=== PATIENT | male | born 1990 ===

== ENCOUNTER 2016-10-20 20:42 | Emergency (ER) | payer OTHER ==
[~2016-10-20] VITALS: Ht 167.6 cm; Wt 70.8 kg
[2016-10-20 20:44] VITALS: TEMP 38.5; Ht 167.6 cm; Wt 70.8 kg
[2016-10-20] MEDS ORDERED: ACYC1CAP8 PO (20:59)
[2016-10-20] MEDS ORDERED: ACET325T96 PO (21:00)
[2016-10-20] MEDS ORDERED: LIDO2SOL19 PO (21:02)
[2016-10-20] MEDS ORDERED: ACETAMINOPHEN 500 MG TAB PO STA (22:08)
[2016-10-20] MEDS ORDERED: ONDANSETRON 4MG OD TAB PO ONE (22:15)
[2016-10-20] MEDS ORDERED: ONDANSETRON HOME PACK 4MG OD TAB PO ONE (22:15)
[2016-10-20] MEDS ORDERED: IBUPROFEN 800 MG TAB PO STA (23:28)
[2016-10-20] MEDS ORDERED: BENADRYL HOME PACK 25 MG TAB PO ONE (23:30)
[2016-10-20 23:44] VITALS: BP 128/67; PULSE 100; O2SAT 98
--- NOTE | 2016-10-21 03:15 | EMERGENCY ROOM VISIT NOTE ---
History First contact with patient: 21:51 Chief Complaint: HEADACHE Stated Complaint: BLISTER ON TONGUE, HEADACHE History of Present Illness The patient is a 25 year old male who presents to the Emergency Room with complaints of fever, headache with myalgias and arthralgias for the past 2 days who has a few blisters on his tongue who went to health services and was placed on acyclovir. Patient does not take anything today for his fever. He has been chewing on cloves to help out with his fever and symptoms. Patient denies neck stiffness, sore throat, chest pain, dyspnea, abdominal pain, cough, abdominal pain, vomiting, diarrhea, joint swellings. Patient has not been drinking any extra water. No recent travel. Review of Systems See HPI for pertinent positives & negatives. A total of 10 systems reviewed and were otherwise negative. Past Medical/Surgical History none Social History Smoking Status: Never Smoker Smokeless Tobacco Use: No Drug Use: none Housing Status: lives with roommate Occupation Status: [employer] student Current/Historical Medications Scheduled Acetaminophen Tab (Tylenol), 1 TAB PO BID Acyclovir (Zovirax), 200 MG PO 5 TIMES DAILY Scheduled PRN Lidocaine Hcl (Mouth-Throat) (Lidocaine Viscous), 15 ML PO TID PRN for Pain Allergies Coded Allergies: No Known Allergies (Unverified , 10/20/16) Physical Exam Vital Signs Date Time Temp Pulse Resp B/P (MAP) Pulse Ox O2 Delivery O2 Flow Rate FiO2 10/20/16 23:44 100 20 128/67 98 10/20/16 22:41 108 18 146/87 98 Room Air 10/20/16 20:44 38.5 112 18 156/91 98 Room Air Pain Rating (0-10): 0 Physical Exam VITALS: Vitals are noted on the nurse's note and reviewed by myself. Vital signs febrile. GENERAL: Pleasant male mildly ill-appearing, in no acute distress, nondiaphoretic, well-developed well-nourished. SKIN: The skin was without rashes, erythema, edema, or bruising. There is no tenting of the skin. Capillary reflex less than 2 seconds. HEAD: Normocephalic atraumatic. EARS: External auditory canals clear, tympanic membranes pearly shah without erythema or effusion bilaterally. EYES: Pupils equal round and reactive to light and accommodation. Conjunctivae without injection, sclerae without icterus. Extraocular movements intact. NOSE: Patent, turbinates without inflammation or discharge. No sinus tenderness. MOUTH: Mucous membranes mildly dry. Pharynx without erythema or exudate. Uvula midline. Airway patent. Tongue does not deviate. No herpetic stomatitis was present. NECK: Supple without nuchal rigidity. No lymphadenopathy. No thyromegaly. Cervical spine is nontender. No JVD. No meningeal signs HEART: Regular rate and rhythm without murmurs gallops or rubs. LUNGS: Clear to auscultation bilaterally without wheezes, rales or rhonchi. No dullness to percussion. No retractions or accessory muscle use. ABDOMEN: Positive bowel sounds x 4. Normal tympanic percussion. Soft, nontender, without masses or organomegaly. Vaca sign negative. No guarding or rebound tenderness. No CVA tenderness MUSCULOSKELETAL: No muscle atrophy, erythema, or edema noted. NEURO: Patient was alert and oriented to person place and time. Normal sensation to light and sharp touch. No focal neurological deficits. Medical Decision & Procedures Medications Administered Medications (Trade) Dose Ordered Sig/Shital Route Start Time Stop Time Status Last Admin Dose Admin Acetaminophen (Tylenol Tab) 1,000 mg NOW STAT PO 10/20/16 22:08 10/20/16 22:09 DC 10/20/16 22:38 1,000 MG Ondansetron HCl (ZOFRAN ODT 4MG Home Pack) 1 homepack UD ONCE PO 10/20/16 22:15 10/20/16 22:16 DC 10/20/16 22:45 1 HOMEPACK Ondansetron HCl (Zofran Odt) 4 mg ONE ONCE PO 10/20/16 22:15 10/20/16 22:16 DC 10/20/16 22:38 4 MG Ibuprofen (Motrin Tab) 800 mg NOW STAT PO 10/20/16 23:28 10/20/16 23:29 DC 10/20/16 23:44 800 MG Diphenhydramine HCl (diphenhydrAMINE 25MG HOME PACK) 1 homepack UD ONCE PO 10/20/16 23:30 10/20/16 23:31 DC 10/20/16 23:43 1 HOMEPACK ED Course Prior records/ancillary studies reviewed. Triage Nursing notes reviewed. Additional history obtained from friend. The patient's history was concerning for fever. Differential diagnosis: Etiologies such as viral syndrome, otitis, pharyngitis, pneumonia, influenza, meningitis, urinary tract infection, sepsis, bacteremia, as well as others were entertained. Physical examination: Patient alert, interactive and tolerating fluids ER treatment provided: Tylenol, Motrin, by mouth fluids On reassessment the patient felt better. Diagnostics interpreted by me: Deferred This appears to be consistent with fever with dehydration most likely viral in etiology. Patient did not want blood work. He requested oral medication for his cold symptoms. He felt better after being medicated as above. He is tolerating fluids. He was advised take Tylenol and Motrin for his fever and drink plenty of fluids. He was advised follow-up health services in a few days or here in the ER sooner for high fevers, lethargy, vomiting, worsening signs or symptoms or as needed. By the evaluation outlined above emergent etiologies such as otitis, pharyngitis, pneumonia, meningitis, urinary tract infection, sepsis, bacteremia, as well as others were deemed relatively unlikely. Patient had no signs of meningitis. He is well-appearing. He was not coughing. The pt informed about the findings as listed above. All questions were answered and pleased with the treatment. Return instructions were outlined and the patient was discharged in stable condition. Referral: The patient was referred back to their primary care physician for follow-up in 2 to 3 days for a recheck of the current condition. Medical Decision As above Impression Primary Impression: Dehydration Additional Impressions: Viral illness Headache Departure Information Dispostion Home / Self-Care Condition GOOD Forms HOME CARE DOCUMENTATION FORM, IMPORTANT VISIT INFORMATION Patient Instructions Fever - [facility], [facility] Additional Instructions Acetaminophen(Tylenol) may be used for fever or pain. Use 1000mg every six hours as needed. Avoid using more than 3000mg in a 24 hour period. (AND/OR) Ibuprofen(Motrin, Advil) may be used for fever or pain. Use 600mg every six hours as needed. Take with food. Avoid using more than 2400mg in a 24 hour period. Do not use 2400mg per day for more than three consecutive days without physician direction. Prolonged inappropriate use can lead to stomach upset or ulcers. Afrin nasal spray: 2-3 sprays to each nostril twice daily as needed for congestion. Do not use for more than 3-4 days because it can lead to worsening rebound congestion. Pseudoephedrine(Sudaphed): 30-60mg every 6 hours as needed for nasal congestion. Do not take this with other stimulant products or supplements. Rest and drink plenty of fluids. Controlling your fever with Tylenol and Ibuprofen as above will make you feel better. Wash your hands after nose blowing, sneezing, or coughing. Most germs are spread through contact, therefore improper hygiene may result in your close contacts and loved ones becoming ill just like you. Continue current medications. Return to the ER for severe headache, neck stiffness, chest pain, difficulty breathing, fevers, vomiting, worsening of your condition, or as needed. Follow up with your primary physician this week for a recheck of your current condition. Problem Qualifiers Additional Impressions: Headache Headache type: unspecified Headache chronicity pattern: acute headache Intractability: not intractable Qualified Codes: R51 - Headache
== END 2016-10-20 23:40 | disposition home or self-care (01) ==
LOC: C.EDB 20:43 → C.EDC 23:40
DX: E86.0 Dehydration (principal); R69 Illness, unspecified; R51 Headache